=== PATIENT | male | born 1955 | race Caucasian/White ===

== ENCOUNTER 2025-03-10 15:06 | Inpatient (IN) | payer MEDICARE, MEDICAID ==
[2025-03-10] MEDS ORDERED: Ondansetron 4 MG/2 ML SDV IV PRN (15:14)
[2025-03-10] MEDS ORDERED: Ondansetron 4 MG Tab.DIS PO PRN (15:14)
[2025-03-10] MEDS ORDERED: Sodium Chloride 0.9% 10 ML Syringe FLUSH PRN (15:14)
[2025-03-10] MEDS: Levofloxacin/Dextrose 5%-Water 750 MG in Premix Bag 1 BAG IV SCH (16:00)
[2025-03-10] MEDS: Fluticasone NASAL Spray 16 GM Bottle NASBOTH SCH (19:27)
[2025-03-10] MEDS: Lactobacillus Rhamnosus GG (Probiotic) Cap PO SCH (19:30)
[2025-03-11 07:31] LABS: BASOPHILS ABSOLUTE AUTO 0.02 10^3/uL (0.00-0.50); BASOPHILS PERCENT AUTO 0.1 % (0-1); EOSINOPHILS ABSOLUTE AUTO 0.07 10^3/uL (0.00-1.50); EOSINOPHILS PERCENT AUTO 0.4 % (0-6); IMMATURE GRAN ABSOLUTE AUTO 0.07 10^3/uL (0.00-0.49); IMMATURE GRAN PERCENT AUTO 0.4 % (0.0-4.9); LYMPHOCYTES ABSOLUTE AUTO 1.59 10^3/uL (0.60-5.00); LYMPHOCYTES PERCENT AUTO 8.5 % (24-44); MONOCYTES ABSOLUTE AUTO 1.01 10^3/uL (0.00-1.50); MONOCYTES PERCENT AUTO 5.4 % (0-10); NEUTROPHILS ABSOLUTE AUTO 16.04 x10^3/uL (1.80-8.00); NEUTROPHILS PERCENT AUTO 85.2 % (41-71); PLATELET COUNT,PLT 178 10^3/uL (150-400); RED BLOOD CELL COUNT 3.68 x10^6/uL (4.50-6.00); WHITE BLOOD CELL COUNT,WBC 18.8 10^3/uL (4.0-11.0)
[2025-03-11 08:01] LABS: ALANINE AMINOTRANSFERASE,ALT 13.0 U/L (12-78); ASPARTATE AMNIOTRANSFERASE,AST 10.0 U/L (15-37); BILIRUBIN TOTAL 0.7 mg/dL (0.0-1.0); BLOOD UREA NITROGEN,BUN 14.0 mg/dL (7-18); CARBON DIOXIDE,CO2 25.0 mmol/L (21-32); CHLORIDE,CL 108.0 mEq/L (98-106); CREATININE 1.3 mg/dL (0.7-1.3); EST CRCL DRUG DOSING (CG) 59.69 mL/min; GLUCOSE RANDOM 107.0 mg/dL (75-99); POTASSIUM,K 3.7 mEq/L (3.5-5.0); PROTEIN TOTAL,TP 6.5 g/dL (6.4-8.2); SODIUM,NA 141.0 mEq/L (136-145)
[2025-03-11] MEDS: Vitamin B Complex Cap PO SCH (08:01)
[2025-03-11 08:02] LABS: ESTIMATED GFR 60.0 mL/min (>=60)
[2025-03-12 07:28] LABS: ALANINE AMINOTRANSFERASE,ALT 15.0 U/L (12-78); ASPARTATE AMNIOTRANSFERASE,AST 10.0 U/L (15-37); BILIRUBIN TOTAL 0.5 mg/dL (0.0-1.0); BLOOD UREA NITROGEN,BUN 11.0 mg/dL (7-18); CARBON DIOXIDE,CO2 25.0 mmol/L (21-32); CHLORIDE,CL 109.0 mEq/L (98-106); CREATININE 1.3 mg/dL (0.7-1.3); EST CRCL DRUG DOSING (CG) 59.69 mL/min; GLUCOSE RANDOM 98.0 mg/dL (75-99); POTASSIUM,K 3.7 mEq/L (3.5-5.0); PROTEIN TOTAL,TP 6.7 g/dL (6.4-8.2); SODIUM,NA 143.0 mEq/L (136-145)
[2025-03-12 07:30] LABS: BASOPHILS ABSOLUTE AUTO 0.02 10^3/uL (0.00-0.50); BASOPHILS PERCENT AUTO 0.1 % (0-1); EOSINOPHILS ABSOLUTE AUTO 0.19 10^3/uL (0.00-1.50); EOSINOPHILS PERCENT AUTO 1.4 % (0-6); IMMATURE GRAN ABSOLUTE AUTO 0.04 10^3/uL (0.00-0.49); IMMATURE GRAN PERCENT AUTO 0.3 % (0.0-4.9); LYMPHOCYTES ABSOLUTE AUTO 1.27 10^3/uL (0.60-5.00); LYMPHOCYTES PERCENT AUTO 9.4 % (24-44); MONOCYTES ABSOLUTE AUTO 0.78 10^3/uL (0.00-1.50); MONOCYTES PERCENT AUTO 5.8 % (0-10); NEUTROPHILS ABSOLUTE AUTO 11.25 x10^3/uL (1.80-8.00); NEUTROPHILS PERCENT AUTO 83.0 % (41-71); PLATELET COUNT,PLT 190 10^3/uL (150-400); RED BLOOD CELL COUNT 3.74 x10^6/uL (4.50-6.00); WHITE BLOOD CELL COUNT,WBC 13.6 10^3/uL (4.0-11.0)
[2025-03-12 07:52] LABS: ESTIMATED GFR 60.0 mL/min (>=60)
[2025-03-12] MEDS: Amoxicillin/Clavulanate K 875-125 MG Tab PO ONE (10:53)
[2025-03-12] MEDS ORDERED: Amoxicillin/Clavulanate K 875-125 MG Tab PO SCH (20:00)
== END 2025-03-12 13:00 | disposition home or self-care (01) | DRG 690 ==
LOC: UNDOADMIN 15:06 → CC.MS 15:06
PROVIDERS: ADMIT Physician Assistant Medical; ATTEND Physician Assistant Medical
DX: N30.01 Acute cystitis with hematuria (principal); J30.9 Allergic rhinitis, unspecified; F03.90 Unspecified dementia, unspecified severity, without behavioral disturbance, psychotic disturbance, mood disturbance, and anxiety; B96.20 Unspecified Escherichia coli [E. coli] as the cause of diseases classified elsewhere; Z79.899 Other long term (current) drug therapy
CPT/HCPCS: 36415; 80053; 85025; 86140; 87040; A9270-GY; J1650; J1956; J7030